=== PATIENT | female | born 1955 | race Caucasian/White ===

== ENCOUNTER 2024-06-13 18:39 | Emergency (ER) | payer MEDICARE ==
[~2024-06-13] VITALS: Ht 160 cm; Wt 71.7 kg
[2024-06-13 19:40] VITALS: PULSE 66; RESP 18; TEMP 97.5
[2024-06-13] MEDS ORDERED: MACROBID 100 M100 MG PO (20:12)
[2024-06-13 20:25] VITALS: BP 188/81; PULSE 66; RESP 18; TEMP 97.5; O2SAT 99
== END 2024-06-13 20:25 | disposition home or self-care (01) ==
LOC: FSED 19:41
DX: R30.0 Dysuria (principal); N39.0 Urinary tract infection, site not specified; R31.9 Hematuria, unspecified; I10 Essential (primary) hypertension; Z98.84 Bariatric surgery status
CPT/HCPCS: 81003; 99282